=== PATIENT | female | born 1945 | race Caucasian/White ===

== ENCOUNTER → 2019-06-10 11:03 | Outpatient (BNVA) | payer MEDICARE, MEDICAID, SELFPAY | PROVIDERS: Family Provider Family Medicine; PCP Family Medicine; Visit Provider Orthopaedic Surgery | DX: S72.492A Other fracture of lower end of left femur, initial encounter for closed fracture (principal); X58.XXXA Exposure to other specified factors, initial encounter | CPT/HCPCS: 73560 ==

== ENCOUNTER → 2019-08-05 10:21 | Outpatient (BNVA) | payer MEDICARE, MEDICAID, SELFPAY | PROVIDERS: Family Provider Nurse Practitioner Family; PCP Family Medicine; Visit Provider Orthopaedic Surgery | DX: Z98.890 Other specified postprocedural states (principal); S72.402A Unspecified fracture of lower end of left femur, initial encounter for closed fracture; X58.XXXA Exposure to other specified factors, initial encounter; Z96.642 Presence of left artificial hip joint; M17.12 Unilateral primary osteoarthritis, left knee | CPT/HCPCS: 73560 ==

== ENCOUNTER → 2021-02-02 10:21 | Outpatient (BNVA) | payer MEDICARE, MEDICAID, SELFPAY | PROVIDERS: Family Provider Nurse Practitioner Family; PCP Family Medicine; Referring Provider Family Medicine; Visit Provider Orthopaedic Surgery | DX: S72.452A Displaced supracondylar fracture without intracondylar extension of lower end of left femur, initial encounter for closed fracture (principal); X58.XXXA Exposure to other specified factors, initial encounter; Z96.642 Presence of left artificial hip joint | CPT/HCPCS: 73560 ==

== ENCOUNTER → 2021-12-28 17:36 | Outpatient (BNVA) | payer MEDICARE, MEDICAID, SELFPAY | PROVIDERS: Family Provider Nurse Practitioner Family; PCP Nurse Practitioner Family; Visit Provider Family Medicine | DX: L29.2 Pruritus vulvae (principal); R30.0 Dysuria | CPT/HCPCS: 81003; 87077; 87086; 87184 ==

== ENCOUNTER → 2022-05-10 14:20 | Outpatient (BNVA) | payer MEDICARE, MEDICAID, SELFPAY | PROVIDERS: Family Provider Nurse Practitioner Family; PCP Nurse Practitioner Family; Visit Provider Nurse Practitioner Family | DX: R30.9 Painful micturition, unspecified (principal) | CPT/HCPCS: 81003; 87077; 87086; 87184 ==

== ENCOUNTER → 2022-06-06 14:57 | Outpatient (BNVA) | payer MEDICARE, MEDICAID, SELFPAY | PROVIDERS: Family Provider Nurse Practitioner Family; PCP Nurse Practitioner Family; Visit Provider Nurse Practitioner Family | DX: N18.2 Chronic kidney disease, stage 2 (mild) (principal); N89.8 Other specified noninflammatory disorders of vagina; R30.0 Dysuria | CPT/HCPCS: 81003; 87077; 87086; 87184 ==

== ENCOUNTER → 2022-08-31 11:01 | Outpatient (BNVA) | payer MEDICARE, MEDICAID, SELFPAY | PROVIDERS: Family Provider Nurse Practitioner Family; PCP Nurse Practitioner Family; Visit Provider Family Medicine | DX: R30.0 Dysuria (principal) | CPT/HCPCS: 81003; 87077; 87086; 87184 ==

== ENCOUNTER → 2022-12-25 09:29 | Outpatient (BNVA) | payer MEDICARE, MEDICAID, SELFPAY | PROVIDERS: Family Provider Nurse Practitioner Family; PCP Nurse Practitioner Family; Visit Provider Nurse Practitioner Family | DX: H81.4 Vertigo of central origin (principal); N23 Unspecified renal colic | CPT/HCPCS: 81003; 87077; 87086; 87184 ==

== ENCOUNTER → 2023-01-19 13:52 | Outpatient (BNVA) | payer MEDICARE, MEDICAID, SELFPAY | PROVIDERS: Family Provider Nurse Practitioner Family; PCP Nurse Practitioner Family; Visit Provider Family Medicine | DX: N23 Unspecified renal colic (principal) | CPT/HCPCS: 81000 ==

== ENCOUNTER 2023-05-10 11:24 | Emergency (ER) | payer MEDICARE, MEDICAID, SELFPAY ==
[2023-05-10 11:28] VITALS: BP 126/77; PULSE 72; RESP 18; TEMP 37; O2SAT 92; BMI 44.8
--- NOTE | 2023-05-10 11:32 | XR_ITS ---
WS: [id number] Right ankle, AP and lateral views, 05/10/2023 Clinical Data: PAIN Comparison: None. Findings: No fractures or dislocations are seen. The ankle mortise is normal. The talus and calcaneus are unrem arkable. There is soft tissue swelling over the medial and lateral malleolus. Vascular calcification is present. There is a plantar spur. Impression: Soft tissue swelling over medial and lateral malleolus.
--- NOTE | 2023-05-10 11:32 | XR_ITS ---
WS: [id number] Left wrist, 2 views, 05/10/2023 Clinical Data: PAIN Comparison: Left wrist, 01/17/2012 Findings: No fractures or dislocations are seen. The carpal bones are intact. There is no soft tissue swelling. The distal radius and ulna are not remarkable. Vascular calcification is seen. Impression: Negative left wrist.
--- NOTE | 2023-05-10 11:41 | ED_ITS ---
HPI - Fall 2 General: Chief Complaint: Fall Stated Complaint: Post fall, Pain Time Seen by Provider: 05/10/23 11:28 History of Present Illness: Patient presents to the ER post fall approximately 3 days ago. Patient states she slipped out of bed and hurt her ankles and her left wrist. Patient already stated that they been x-rayed at the facility but they were negative and they did not find anything. But they continue to hurt worse every day. She is currently on acetaminophen, gabapentin, menthol topical gel, and tramadol for pain. Patient is alsoon Plavix and furosemide.. Review of Systems 2 General: Reports: 10 or more systems reviewed and unremarkable except in HPI and below PFSH ED 2 PFSH: Medical History Morbid (severe) obesity due to excess calories Other specified noninflammatory disorders of vagina Presence of cardiac pacemaker History of falling Personal history of (healed) stress fracture Unsteadiness on feet Type 2 diabetes mellitus Surgical History Presence of left artificial hip joint Presence of left artificial knee joint Social History Smoking and tobacco/nicotine status: never used tobacco/nicotine Alcohol intake: never Substance/Drug Use: never Physical Exam 2 Const: COMMON NORMALS: no acute distress, average body habitus, patient oriented x3, no limitations, healthy appearing, alert and well nourished HENMT: COMMON NORMALS: normocephalic, hearing grossly normal bilaterally, external ears normal, Normal external nose present, moist oral mucous membranes and oropharynx normal HEAD & SCALP: normocephalic NOSE: Normal external nose present EXTERNAL EAR: Yes external ears normal Eye: COMMON NORMALS: Equal, round and reactive pupils present, conjunctivae normal and no scleral icterus CONJUNCTIVA: Yes conjunctivae normal PUPIL: Yes Equal, round and reactive pupils present Neck/C-Spine: COMMON NORMALS: full ROM, no lymphadenopathy, supple, no meningeal signs, no JVD and Thyroid normal THYROID: Thyroid normal Chest: COMMONS NORMALS: normal inspection of the chest and normal palpation of entire chest wall Resp: COMMON NORMALS: normal respiratory effort, No retractions, No use of accessory muscles and clear to auscultation bilaterally AUSCULTATION: clear to auscultation bilaterally Cardio: COMMON NORMALS: no JVD, regular rate, regular rhythm, S1 normal heart sound present, S2 normal heart sound present, No gallops present (Cardio), No clicks present (Cardio), No murmurs present (Cardio) and No rub (Cardio) R ATE: regular rate RHYTHM: regular rhythm HEART SOUNDS: S1 normal heart sound present and S2 normal heart sound present GI: COMMON NORMALS: Normal to inspection, nondistended, normoactive bowel sounds present, Soft to palpation, non-tender, No hepatosplenomegaly present and no masses PALPATION: Yes Soft to palpation and Yes No hepatosplenomegaly present Extremity: NARRATIVE EXTREMITY EXAM: Extremities all normal in appearance, pain with palpation over left medial wrist, and bilateral outer ankles. Full range of motion, no edema crepitus deformity noted. Neuro: COMMON NORMALS: patient oriented x3 SENSORIUM/ORIENTATION: Yes alert MENINGEAL SIGNS: Yes no meningeal signs Course 2 Vital Signs: Vital signs: Vital Signs Temperature 98.6 F 05/10/23 11:28 Pulse Rate 72 05/10/23 11:28 Respiratory Rate 18 05/10/23 11:28 Blood Pressure 126/77 05/10/23 11:28 Pulse Oximetry 92 05/10/23 11:28 Oxygen Delivery Me thod Room Air 05/10/23 11:28 MDM - Fall Medical Decision Making Patient fell in [facility] 3 days ago and was complaining of bilateral ankle and foot pain and left wrist pain. She says these hurts so much she can even stand anything touching it. Patient is currently on Lasix but her BUN/creatinine previously was normal. Lab work was obtained which did show an elevated BUN/creatinine of 52 and 2.7 suggesting acute renal insufficiency as well as an elevated uric acid of 13.6 and a CRP of 179. X-rays were obtained which were negative for acute fractures. Patient will be bolused 1 L normal saline to help the renal insufficiency given 125 mg Solu-Medrol and started on colchicine as an outpatient. Patient should follow-up with her PCP within the next 7 days for further evaluation and testing to include labs such as repeat uric acid and BUN/creatinine. Differential Diagnosis Unlikely syncope, dislocation of shoulder region, fracture of wrist, compression fracture, concussion with loss of consciousness or concussion without loss of consciousness Medical Records I reviewed the patient's medical records. Lab Data I reviewed the patient's lab results. 05/10/23 11:49 05/10/23 11:49 Laboratory Results WBC 8.39 10^3/uL (3.29-11.43) 05/10/23 11:49 RBC 4.37 10^6/uL (3.85-5.65) 05/10/23 11:49 Hgb 13.20 g/dL (11.27-16.99) 05/10/23 11:49 Hct 39.9 % (36-47) 05/10/23 11:49 MCV 91.3 fl (85-98) 05/10/23 11:49 MCH 30.2 pg (27-33) 05/10/23 11:49 MCHC 33.1 g/dL (30-55) 05/10/23 11:49 RDW 13.5 % (12.1-15.1) 05/10/23 11:49 Plt Count 323 10^3/cmm (157-399) 05/10/23 11:49 MPV 10.6 fL (7.4-10.4) H 05/10/23 11:49 Neut % (Auto) 68.0 % 05/10/23 11:49 Lymph % (Auto) 21.6 % 05/10/23 11:49 [place] % (Auto) 7.6 % 05/10/23 11:49 Eos % (Auto) 1.9 % 05/10/23 11:49 Baso % (Auto) 0.4 % 05/10/23 11:49 Neut # (Auto) 5.71 10^3/uL (1.8-7.7) 05/10/23 11:49 Lymph # (Auto) 1.8 10^3/uL (0.8-4.8) 05/10/23 11:49 [place] # (Auto) 0.6 10^3/uL (0.2-0.9) 05/10/23 11:49 Eos # (Auto) 0.2 10^3/uL (0.0-0.8) 05/10/23 11:49 Baso # (Auto) 0.0 10^3/uL (0.0-0.1) 05/10/23 11:49 Nucleated RBC % (auto) 0 % 05/10/23 11:49 Nucleated RBCs # 0.0 /100WBC 05/10/23 11:49 Sodium 132 mmol/L (136-145) L 05/10/23 11:49 Potassium 4.8 mmol/L (3.5-5.1) 05/10/23 11:49 Chloride 92 mmol/L (98-107) L 05/10/23 11:49 Carbon Dioxide 27 mmol/L (22-29) 05/10/23 11:49 Anion Gap 17.8 (5-19) 05/10/23 11:49 BUN 52 mg/dL (8-23) H 05/10/23 11:49 Creatinine 2.7 mg/dL (0.5-0.9) H 05/10/23 11:49 GFR Calculation Not Reportable 05/10/23 11:49 Glucose 238 mg/dL (65-115) H 05/10/23 11:49 Calculated Osmolality 296 mOsm/kg (285-295) H 05/10/23 11:49 Uric Acid 13.6 mg/dL (2.4-5.7) H 05/10/23 11:49 Calcium 9.6 mg/dL (8.5-10.5) 05/10/23 11:49 Magnesium 2.1 mg/dL (1.7-2.3) 05/10/23 11:49 Total Bilirubin 0.4 mg/dL (0.15-1.2) 05/10/23 11:49 AST 22 U/L (0-32) 05/10/23 11:49 ALT 20 U/L (0-33) 05/10/23 11:49 Alkaline Phosphatase 62 U/L (35-105) 05/10/23 11:49 C-Reactive Protein 179.4 mg/L (0.0-4.9) H 05/10/23 11:49 Total Protein 7.4 g/dL (6.6-8.7) 05/10/23 11:49 Albumin 3.6 g/dL (3.5-5.2) 05/10/23 11:49 Globulin 3.8 g/dL (1.3-4.6) 05/10/23 11:49 All radiology interpretation(s) finalized by discharge Discharge Plan Discharge Patient Disposition: Home Clinical Impression: Acute kidney injury superimposed on chronic kidney disease Gout Qualifiers: Gout site: multiple sites Gout etiology: unspecified cause Chronicity: acute Q ualified Code(s): M10.9 - Gout, unspecified Condition: Stable Prescriptions: No Action nitroglycerin [Nitrostat] 0.4 mg tablet, sublingual 0.4 mg SUBLINGUAL Q5M PRN (DME) Truetest Test Strips Strip See Rx Instructions .ROUTE .MEDSUPPLY Qty: 10 Rx Instructions: As directed fenofibrate 54 mg tablet 54 mg PO ONCE diltiazem HCl 240 mg capsule,extended release 24hr 240 mg PO QAM clopidogrel 75 mg tablet 75 mg PO ONCE isosorbide mononitrate 120 mg tablet extended release 24 hr 120 mg PO QAM gabapentin 300 mg capsule 300 mg PO TID losartan 100 mg tablet 100 mg PO DAILY carboxymethylcellulose sodium [Refresh Tears] 0.5 % drops 1 drp ophthalmic (eye) DAILY loperamide 2 mg tablet 2 mg PO Q4H PRN Rx Instructions: administer after each loose stool until symptoms controlled; do not exceed 8 mg per 24 hrs Biofreeze (menthol) 4 % gel 1 applic topical QID PRN tetrahydrozoline [Visine] 0.05 % drops 2 drp ophthalmic (eye) TID nystatin 100,000 unit/gram cream 1 applic topical BID PRN potassium chloride 20 mEq tablet extended release 20 meq PO DAILY acetaminophen 500 mg capsule 1,000 mg PO Q8H PRN cetirizine [Zyrtec] 10 mg tablet 10 mg PO DAILY PRN ammonium lactate 12 % cream 1 applic topical DAILY Acidophilus Capsule 10 mg PO BID famotidine [Pepcid] 20 mg tablet 20 mg PO DAILY meclizine 25 mg tablet 25 mg PO QID PRN furosemide 40 mg tablet 40 mg PO BID metformin 1,000 mg tablet 1,000 mg PO BID tramadol 50 mg tablet PO ammonium lactate 12 % cream 1 applic topical DAILY PRN [place] Ultra Strength 4-30-10 % cream 1 applic topical DAILY PRN Biofreeze (menthol) 4 % gel 1 applic topical DAILY PRN bisacodyl 5 mg tablet,delayed release (DR/EC) 20 mg PO DAILY PRN bisacodyl 10 mg suppository 10 mg MA DAILY PRN insulin degludec [Tresiba FlexTouch U-100] 100 unit/mL (3 mL) insulin pen 17 unit SUBCUT DAILY melatonin 5 mg capsule 5 mg PO .qhs Qty: 90 0RF Discharge Orders: Discharge ED (Routine); Ordered 05/10/23 Ordered By: Kevin Overton Referrals: Jane Espinoza, [facility] [Primary Care Provider] - 1 week Patient Instructions: Gout, Acute Kidney Injury (DC) Activity Restrictions/Additional Instructions: Please take all medicines as directed. Please follow-up with your family practice physician in the next 7 to 10 days for further evaluation and testing. Please have them recheck your kidneys with a BUN/creatinine and also your uric acid. Coding Level of Care Code ED Program Medical Director for Bel[facility] Orourke
[2023-05-10 11:57] LABS: Basophils % 0.4 %; Eosinophils # 0.2 10^3/uL (0.0-0.8); Eosinophils % 1.9 %; Hematocrit 39.9 % (36-47); Lymphocytes # 1.8 10^3/uL (0.8-4.8); Lymphocytes % 21.6 %; Mean Corpuscular HGB Conc 33.1 g/dL (30-55); Mean Corpuscular Hemoglobin 30.2 pg (27-33); Mean Corpuscular Volume 91.3 fl (85-98); Mean Platelet Volume 10.6 fL (7.4-10.4); Monocytes # 0.6 10^3/uL (0.2-0.9); Monocytes % 7.6 %; Neutrophils # 5.71 10^3/uL (1.8-7.7); Nucleated Red Blood Cells % 0 %; Platelet Count 323 10^3/cmm (157-399); Red Blood Count 4.37 10^6/uL (3.85-5.65); Red Cell Distribution Width 13.5 % (12.1-15.1); White Blood Count 8.39 10^3/uL (3.29-11.43)
[2023-05-10 12:19] LABS: Alanine Aminotransferase 20 U/L (0-33); Albumin Level 3.6 g/dL (3.5-5.2); Alkaline Phosphatase 62 U/L (35-105); Anion Gap 17.8 (5-19); Aspartate Amino Transferase 22 U/L (0-32); Blood Urea Nitrogen 52 mg/dL (8-23); C Reactive Protein 179.4 mg/L (0.0-4.9); Calcium 9.6 mg/dL (8.5-10.5); Carbon Dioxide 27 mmol/L (22-29); Chloride 92 mmol/L (98-107); Globulin 3.8 g/dL (1.3-4.6); Glucose 238 mg/dL (65-115); Magnesium 2.1 mg/dL (1.7-2.3); Osmolality Calculated 296 mOsm/kg (285-295); Potassium 4.8 mmol/L (3.5-5.1); Sodium 132 mmol/L (136-145); Total Bilirubin 0.4 mg/dL (0.15-1.2); Total Protein 7.4 g/dL (6.6-8.7); Uric Acid 13.6 mg/dL (2.4-5.7)
[2023-05-10] MEDS: sodium chloride 0.9% 1,000 ML 999 ML IV (13:37)
[2023-05-10] MEDS: methylPREDNISolone sod succ 125 mg/2 mL INJ IVP (13:37)
[2023-05-10] MEDS: colchicine 0.6 mg Tablet 1.2 MG PO (13:41)
== END 2023-05-10 17:38 | disposition home or self-care (01) ==
PROVIDERS: Emergency Provider Emergency Medicine; PCP Nurse Practitioner Family
DX: M10.9 Gout, unspecified (principal); E11.22 Type 2 diabetes mellitus with diabetic chronic kidney disease; N18.9 Chronic kidney disease, unspecified; Z95.0 Presence of cardiac pacemaker; Z79.4 Long term (current) use of insulin; Z79.84 Long term (current) use of oral hypoglycemic drugs
CPT/HCPCS: 36415; 73100; 73600; 80053; 83735; 84550; 85025; 86140; 96361; 96374; 99284; J2930; J7030

== ENCOUNTER → 2025-01-20 11:00 | Outpatient (BNVA) | payer MEDICARE, MEDICAID, SELFPAY | PROVIDERS: PCP Nurse Practitioner Family; Visit Provider Nurse Practitioner Family | DX: N39.0 Urinary tract infection, site not specified (principal) | CPT/HCPCS: 81000; 87077; 87086; 87184 ==